=== PATIENT | female | born 1975 | race Caucasian/White ===

== ENCOUNTER 2020-02-22 20:44 | Emergency (ER) | payer MEDICAID ==
[~2020-02-22] VITALS: Ht 162.6 cm; Wt 56.0 kg
[~2020-02-22 20:44] MED LIST: DIAZ5TAB PO; LEVE10002 PO
[2020-02-22 20:45] VITALS: BP 162/103
== END 2020-02-22 21:46 | disposition left against medical advice (07) ==
LOC: ER 20:44
DX: R53.1 Weakness (principal); E86.0 Dehydration; Z53.21 Procedure and treatment not carried out due to patient leaving prior to being seen by health care provider